=== PATIENT | male | born 1990 | race Two or more races ===

== ENCOUNTER 2022-09-14 20:08 | Emergency (ER) | payer SELFPAY ==
[2022-09-14 20:20] VITALS: BP 114/63; PULSE 68; RESP 18; TEMP 98.1; BMI 27.4
== END 2022-09-14 22:51 | disposition home or self-care (01) ==
LOC: JERFT 20:08
DX: S05.01XA Injury of conjunctiva and corneal abrasion without foreign body, right eye, initial encounter (principal); H57.11 Ocular pain, right eye; H11.421 Conjunctival edema, right eye; H57.89 Other specified disorders of eye and adnexa; W45.8XXA Other foreign body or object entering through skin, initial encounter; Y93.89 Activity, other specified; Y92.009 Unspecified place in unspecified non-institutional (private) residence as the place of occurrence of the external cause
CPT/HCPCS: 99283-25